=== PATIENT | male | born 1940 | race Caucasian/White ===

== ENCOUNTER 2020-02-14 09:55 | Outpatient (CLI) | payer MEDICARE, SELFPAY ==
--- NOTE | 2020-02-14 09:58 | ECG_ITS ---
Measurements Intervals [place] Rate: 65 P: 61 MO: 181 QRS: -22 QRSD: 97 T: 47 QT: 424 QTc: 443 Interpretive Statements SINUS RHYTHM ATRIAL PREMATURE COMPLEX DELAYED PRECORDIAL R/S TRANSITION BASELINE ARTIFACT- I, II, III, AVR, AVL, AVF, V1-V2, V5 BORDERLINE ECG Electronically Signed On 02-14-2020 10:30:01 [employer] by Raúl Michael D.O.
== END 2020-02-14 09:56 | disposition home or self-care (01) ==
LOC: ANHSURGERY 09:58
PROVIDERS: PCP Internal Medicine; Visit Provider Plastic Surgery
DX: Z01.818 Encounter for other preprocedural examination (principal); I10 Essential (primary) hypertension; R94.31 Abnormal electrocardiogram [ECG] [EKG]
CPT/HCPCS: 93005

== ENCOUNTER 2020-02-16 02:11 | Outpatient (CLI) | payer MEDICARE, SELFPAY ==
[2020-02-16 19:32] LABS: SARS-CoV-2 RNA PCR Negative
== END 2020-02-16 02:12 | disposition home or self-care (01) ==
LOC: ANHCOVIDDT 02:12
PROVIDERS: PCP Internal Medicine; Visit Provider Plastic Surgery
DX: Z01.812 Encounter for preprocedural laboratory examination (principal); Z20.822 Contact with and (suspected) exposure to COVID-19
CPT/HCPCS: C9803; U0003

== ENCOUNTER 2020-02-20 02:38 | Day surgery (SDC) | payer MEDICARE, SELFPAY ==
[2020-02-13 14:52] VITALS: BMI 23.6
[2020-02-20] VITALS (7 sets, daily range): BP systolic 93–135; BP diastolic 51–68; PULSE 71–102; RESP 14–16; TEMP 36.9–37.1; O2SAT 92–97
[2020-02-20] MEDS: LACTATED RINGERS 1,000 ML 30 ML IV CONT (06:33)
--- NOTE | 2020-02-20 07:05 | WPDANESEPPF ---
Anes - Initial Pre Proc Eval Procedure: Operation Date: 02/20/20 07:30 Proposed Procedures p Left Partial Palmar Fasciectomy - Donald Sams MD Date/Time: 02/20/20 07:05 Surgeon: Donald Sams MD Pre Op Diagnosis: Dupuytren's Contracture Patient Data Age: 79 Gender: M Height: 5 ft 9 in Weight: 72.8 kg Last Vital Signs Temp 98.4 F 02/20/20 06:25 Pulse 71 02/20/20 06:25 Resp 16 02/20/20 06:25 BP 135/68 02/20/20 06:25 Pulse Ox 97 02/20/20 06:25 Allergies Allergy/AdvReac Type Severity Reaction Status Date / Time No Known Allergies Allergy Verified 02/20/20 06:03 Home Medications Medication Instructions Recorded Confirmed Type amlodipine 10 mg QAM 02/13/20 02/20/20 History aspirin [Aspirin Low Dose] 81 mg PO DAILY 02/13/20 02/20/20 History calcium polycarbophil 1,250 mg PO BID 02/13/20 02/20/20 History finasteride 5 mg HS 02/13/20 02/20/20 History lisinopril 20 mg QAM 02/13/20 02/20/20 History omega-3 fatty acids [Spencer 3] 1,000 mg PO BID 02/13/20 02/20/20 History terazosin 10 mg HS 02/13/20 02/20/20 History vitamins A,C,W-bdct-rmejqp 2 tablet PO BID 02/13/20 02/20/20 History [PreserVision AREDS] Patient hx anesthesia problems: none Family hx anesthesia problems: none PMFSH Past Medical History Medical History (Updated 02/20/20 @ 07:05 by Marcial Sow MD) Oswald's palsy Hypertension Social History Social History Smoking status: Former smoker Second hand tobacco smoke exposure: No Additional smoking assessment comments: STATES QUIT OVER 50YRS AGO STATES DIDN'T SMOKE FOR LONG Alcohol intake: current Drinks per week: 22 Substance use: never Substance use type: does not use Living arrangements: with family Spiritual care concerns: No Anes - Eval Final PreProcedure Day of Procedure 02/20/20 07:05 Patient weight: normal Heart: regular rate and rhythm Lungs: clear to auscultation Airway: Mallampati scale Neurological: alert and oriented Last oral intake: >/= 8 hours ASA classification: III Emergent: no Anesthetic plan: proceed Anesthesia type and monitoring: general LMA and standard monitoring Informed Consent: The patient's anesthetic plan and its attendant risks and benefits were discussed with the patient/family/POA. Questions were solicited and answers provided to the satisfaction of the patient/family/POA.
--- NOTE | 2020-02-20 07:32 | WPDHPUPDATE1 ---
History and Physical Update Update Date/Time: 02/20/20 07:32 History and Physical has been reviewed, including an updated exam of the patient. There are NO changes in the patient's condition. Risks, benefits, and alternatives have been discussed and questions answered. Patient agrees to proceed with procedure.
[2020-02-20] MEDS: LIDO 1%/EPINEPHRINE 1:100,000 50 ML VIAL INFILTRATE (07:54)
[2020-02-20] MEDS: BACITRACIN OINTMENT 15 GM TUBE 1 APPLIC TOPICAL (07:59)
--- NOTE | 2020-02-20 10:22 | PM.OP ---
Procedure Note - Brief Procedure Note - Brief Date of procedure: 02/20/20 Pre-op diagnosis: Dupuytren's Contracture Post-op diagnosis: same Procedure performed: Partial palmar fasciectomy of left hand Anesthesia: GLMA Surgeon: Donald Sams MD Culinary Instructor: Charles Estimated blood loss (mL): 5 Tourniquet time (min): 75 Drains: No Packing: No Pathology: none sent Complications: No immediate complications Condition: stable
--- NOTE | 2020-02-20 10:25 | PM.PROC ---
Procedure Note - Detailed Date of procedure: 02/20/20 Pre-op diagnosis: Dupuytren's Contracture Post-op diagnosis: same Procedure performed: Left partial palmar fasciectomy Anesthesia: GETA Surgeon: Donald Sams MD Sales Donor Recruitment Representative: Charles Estimated blood loss (mL): 5 Tourniquet time (min): 0 Drains: No Packing: No Pathology: none sent Complications: No immediate complications Condition: stable Disposition: PACU
--- NOTE | 2020-02-20 20:18 | PM.PROC ---
Procedure Note - Detailed Date of procedure: 02/20/20 Pre-op diagnosis: Dupuytren's Contracture Post-op diagnosis: same Procedure performed: Partial palmar fasciectomy of the left hand Description of procedure: The patient's hand was marked in the holding area. He pointed out the worst finger which is the ring and he wanted to make sure I understood he needed some work on the small and middle fingers as well. He has a significant 25 degree flexion contracture of the metacarpophalangeal joint on the middle finger without obvious cords in that digit. There is a prominent pretendinous cord in the palm of the 4th ray and very little palpable cord in the 5th digit. He was taken to the operating room and placed supine on the operating table he was administered general endotracheal anesthesia the extremity was prepped and draped in usual fashion a time-out was held and confirmed. The markings were carefully placed on this palm and other digits we selected Kevin type incisions to the fingers. 1% lidocaine with epinephrine was infiltrated. T the tourniquet was inflated to 250 mmHg. A transverse incision was made to access the pretendinous cord at the 4th ray in the palm and this was carefully dissected. A very thin tough cord running from that to the middle finger was noted and this was lysed. The remainder of the procedure involved removal of cords within the fingers accessed through the Kevin incisions. This gentleman's array of Dupuytren cords was very unfamiliar to me. He had very prominent lateral cords on each of the fingers and a very thick spiral cord on the ring. The amount of disease isolated within the fingers laterally and distally was unexpected. The neurovascular bundles were carefully identified and preserved. The flexor tendon sheath was not opened. The cords were removed. We were able to essentially extend all the digits to 0? the skin wounds were closed with running 4-0 nylon suture. The the tourniquet was released well before closure. A bulky bandage was applied no splint was applied. He is discharge instructions in wound care and follow-up. He was placed on prescriptions for Keflex and Tramadol. Surgeon: Donald Sams MD
== END 2020-02-20 11:40 | disposition home or self-care (01) ==
PROVIDERS: PCP Internal Medicine; Visit Provider Plastic Surgery
PROC: (CPT 26045; principal; 2020-02-20 07:30)
DX: M72.0 Palmar fascial fibromatosis [Dupuytren] (principal); I10 Essential (primary) hypertension; Z79.82 Long term (current) use of aspirin; Z87.891 Personal history of nicotine dependence
CPT/HCPCS: 26121; A9270; J2704; J3010; J7120